=== PATIENT | female | born 2000 | race African-American/Black ===

== ENCOUNTER 2019-05-11 12:00 | Emergency (ER) | payer MEDICAID ==
[~2019-05-11] VITALS: Ht 165.1 cm; Wt 60.0 kg
[2019-05-11 12:23] VITALS: BP 107/76
== END 2019-05-11 12:34 | disposition left against medical advice (07) ==
LOC: ER 12:00
DX: Z53.21 Procedure and treatment not carried out due to patient leaving prior to being seen by health care provider (principal)